=== PATIENT | male | born 1940 | race Caucasian/White ===

== ENCOUNTER → 2016-12-10 | Outpatient (CLI) | payer OTHER ==
[~2016-12-10] MED LIST: IOPAMIDOL (ISOVUE-300) 100 ML BTL ONE
== END ==
LOC: FIMAGING 10:23
PROVIDERS: ATTEND Physician Assistant Medical
DX: C64.9 Malignant neoplasm of unspecified kidney, except renal pelvis (principal)
CPT/HCPCS: 71020; 74177; Q9967

== ENCOUNTER → 2018-06-30 | Outpatient (CLI) | payer OTHER ==
[~2018-06-30] MED LIST changes: +IOPAMIDOL (ISOVUE 370) 100 ML BTL IV ONE; -IOPAMIDOL (ISOVUE-300) 100 ML BTL ONE; +LIDOCAINE 1% 300 MG/30 ML SDV ONE
== END ==
LOC: FIMAGING 10:04
PROVIDERS: ATTEND Orthopaedic Surgery
PROC: 3E0U3KZ Introduction of Other Diagnostic Substance into Joints, Percutaneous Approach (ICD-10-PCS; principal; 2018-06-30)
DX: M25.511 Pain in right shoulder (principal); Z95.0 Presence of cardiac pacemaker
CPT/HCPCS: 23350; 73040; 73201; Q9967

== ENCOUNTER → 2018-09-30 | Outpatient (CLI) | payer OTHER | LOC: FIMAGING 09:17 ==